=== PATIENT | female | born 1950 | race Caucasian/White ===

== ENCOUNTER 2022-06-05 08:00 | Outpatient (CLI) | payer BC ==
[~2022-06-05] VITALS: Ht 162.6 cm; Wt 53.1 kg
[2022-06-08] MEDS ORDERED: CEFAZOLIN SOD 1 GM in D5W 50 ML IV ONE (07:00)
== END 2022-06-05 16:00 | disposition home or self-care (01) ==
LOC: SLB 08:00 → EDBD 06-08 09:00 → EDSTATUS 06-08 09:00
PROVIDERS: ATTEND Colon & Rectal Surgery
DX: Z01.818 Encounter for other preprocedural examination (principal); C50.912 Malignant neoplasm of unspecified site of left female breast; Z20.822 Contact with and (suspected) exposure to COVID-19
CPT/HCPCS: 36415; U0003; J0690; J7060